=== PATIENT | female | born 1995 | race Caucasian/White ===

== ENCOUNTER 2017-03-10 21:01 | Emergency (ER) | payer OTHER ==
[~2017-03-10 21:01] MED LIST: BACTRIM DS TABL1 TAB PO; IBUPROFEN800 MG PO; NAPROSYN500 MG PO; NO MEDICATIONS; PERCOCET7.5 PO; ZOFRAN ODT4 MG SL; ZOFRAN PO
== END 2017-03-10 21:23 | disposition home or self-care (01) ==
LOC: SED 21:01
DX: S39.012A Strain of muscle, fascia and tendon of lower back, initial encounter (principal); X50.9XXA Other and unspecified overexertion or strenuous movements or postures, initial encounter; Y93.89 Activity, other specified; Y92.89 Other specified places as the place of occurrence of the external cause; Y99.0 Civilian activity done for income or pay
CPT/HCPCS: 99283